=== PATIENT | female | born 1995 | race Caucasian/White ===

== ENCOUNTER 2023-08-14 13:27 | Day surgery (SDC) | payer OTHER, SELFPAY ==
[2023-08-13 12:34] VITALS: BMI 25.4
[2023-08-14 13:43] VITALS: BMI 27.3
[2023-08-14 13:48] VITALS: BP 113/67; PULSE 97; RESP 17; TEMP 36.2; O2SAT 100
[2023-08-14] MEDS: LACTATED RINGERS 1,000 ML 42 ML IV (14:07)
[2023-08-14] MEDS: ACETAMINOPHEN 325 MG TABLET 975 MG PO (14:08)
--- NOTE | 2023-08-14 14:08 | SUR.PREOP ---
1400 fht taken by OB RN 130bpm
--- NOTE | 2023-08-14 15:10 | SUR.OPER ---
Supine on padded OR bed, head on pillow, non op arm secured on padded arm board at <90 degrees abduction, operative arm on padded hand table. legs uncrossed, safety belt at thigh, tape over blanket over lower legs.
--- NOTE | 2023-08-14 15:20 | P.OP_ITS ---
Operative Date/Time/Diagnoses Date of procedure: 08/14/23 Time of procedure: 15:30 Pre-op diagnosis: Right arm dog bite with tendon injury Post-op diagnosis: same Procedure & Clinicians Procedure: Right wrist tendon repair extensor indices Same procedure as scheduled: Yes Indications: Stretching and attenuation of the right wrist extensor tendon to the index finger with laceration Surgeon: Leah Casas Click Yes if Unassisted: Yes Anesthesia Type: General Operative Notes Findings: Very stretched and attenuated tendon to the index finger, proximal laceration in the extensor retinaculum tendon traced distally, attenuated Closure Type: primary Specimen(s): none sent Estimated Blood Loss (mL): 10 Blood products transfused: none Procedure in detail: Patient was brought to the operating room. A time-out was performed. She was we checked her heart tones preoperatively. IV antibiotics were given. A time-out was performed. Patient's right upper extremity was prepped draped standard sterile fashion. I am tourniquet was elevated to 250 for proximal and hour. The patient had multiple bites around her arm the sutures were removed from the majority of the wounds. She had a fairly large ulnar wound with she had previously been explored sutures were removed and the insert tendon. Dissection was meticulously carried out along the extensor tendon was dissected down to the retinaculum I then extended the rent in the extensor retinaculum proximally and distally in order to look for and further define the anatomy of the injured tendon. The extensor carpi ulnaris compartment was intact. The wound was into the common extensor retinacular area. Common extensor tendons were meticulously examined. The abnormal tendon was in continuity distally with the index finger. It was quite atypical in that it appeared to be significantly attenuated and lacerated but not with a complete laceration. I meticulously dissected around the tendon and I pulled on the proximal aspect to make sure that it was in some continuity with the residual muscle. I also opened the more proximal wound and checked down into the depth of the wound to make sure that there was no evidence of a more proximal laceration of the tendon. The tendon was meticulously mobilized some peritoneal on an soft it started to form some scar with the subcutaneous tissues was meticulously tendon was then realigned into a more anatomic position and repair ed with interrupted 4-0 nonabsorbable polyester stitches. I specifically checked range of motion to make sure that the was was appropriate tension on the tendon. The extensor retinaculum was repaired with interrupted Vicryl. The wound was meticulously with normal saline. Marcaine was injected skin was closed with interrupted nylon. Patient was placed in a short-arm splint with max with wrist extension some finger extension at the MCP joint leaving the PIP and dip PIP joints free. She tolerated the procedure well she was transferred recovery room in satisfactory condition. Complications: none Post-operative Condition: stable Disposition: Acute Care Plan for aftercare: Elevate right upper extremity. Use ice as needed. Follow up in 10-14 days no lifting with the right upper extremity.
--- NOTE | 2023-08-14 15:20 | PM.PREOP ---
Pre-operative Note Interval Note History & Physical reviewed/Exam performed by Physician: Yes Changes to H&P: No H&P completed within 30 days and has changed as indicated here:: She notes some weakness of wrist dorsiflexion and decreased strength to her small finger wounds are healed on bilateral lower upper extremities with no active drainage or erythema
[2023-08-14] MEDS: CEFAZOLIN 2 GM/100 ML PREMIX 100 ML IV (15:38)
[2023-08-14] MEDS: BUPIVACAINE 0.5% (PF) 30 ML VIAL INJ (16:00)
[2023-08-14 16:58] VITALS: BP 96/57; PULSE 88; RESP 10; TEMP 36.2; O2SAT 99
[2023-08-14 17:03] VITALS: BP 105/65; PULSE 81; RESP 13; O2SAT 100
[2023-08-14 17:08] VITALS: BP 91/57; PULSE 84; RESP 15; O2SAT 99
[2023-08-14] MEDS: OXYCODONE IR 5 MG TABLET PO (17:14)
[2023-08-14 17:15] VITALS: BP 100/63; PULSE 75; RESP 22; O2SAT 100
[2023-08-14 17:19] VITALS: BP 107/61; PULSE 75; RESP 16; TEMP 36.3; O2SAT 100
== END 2023-08-14 17:45 | disposition home or self-care (01) ==
PROVIDERS: Referring Provider Orthopaedic Surgery; Visit Provider Orthopaedic Surgery
PROC: (CPT 25272; principal; 2023-08-14 14:30)
DX: S61.502A Unspecified open wound of left wrist, initial encounter (principal); W54.0XXA Bitten by dog, initial encounter; Z33.1 Pregnant state, incidental; Z3A.17 17 weeks gestation of pregnancy
CPT/HCPCS: 25272; J0690; J2405; J2704; J3010